=== PATIENT | female | born 1975 | race Caucasian/White ===

== ENCOUNTER → 2016-07-07 17:01 | Outpatient (CLI) | payer OTHER ==
[2016-08-21 06:33] VITALS: BMI 30.1
== END | disposition home or self-care (01) ==
LOC: D.MAMMO 11:45
DX: Z12.31 Encounter for screening mammogram for malignant neoplasm of breast (principal)

== ENCOUNTER 2016-08-21 05:43 | Day surgery (SDC) | payer OTHER ==
[2016-08-21 06:38] LABS: BASOPHILS 0.2 % (0-2); HEMATOCRIT 42.9 % (36.0-48.0); HEMOGLOBIN 14.3 g/dL (12-16); IMMATURE GRANULOCYTES 0.4 % (0-5); LYMPHOCYTES 24.4 % (15-50); MCH 33.3 pg (26.0-34.0); MCHC 33.3 g/dL (31.0-37.0); MCV 99.8 fL (80.0-100.0); MONOCYTES 14.8 % (2-11); NEUTROPHILS 58.2 % (40-80); PLATELET COUNT 231 10x3/uL (130-400); RDW 12.9 % (11.5-14.5)
[2016-08-21 06:42] LABS: HCG URINE NEGATIVE (NEGATIVE)
== END 2016-08-21 08:45 | disposition home or self-care (01) ==
LOC: D.OPS 05:43
PROVIDERS: Obstetrics & Gynecology
DX: Z30.433 Encounter for removal and reinsertion of intrauterine contraceptive device (principal); Z01.812 Encounter for preprocedural laboratory examination; N88.2 Stricture and stenosis of cervix uteri

== ENCOUNTER 2018-06-28 19:00 | Outpatient (CLI) | payer OTHER ==
[2016-08-21 06:33] VITALS: BMI 30.1
== END 2018-06-28 23:59 | disposition home or self-care (01) ==
LOC: D.MAMMO 19:00
PROVIDERS: ATTEND Family Medicine
DX: Z12.31 Encounter for screening mammogram for malignant neoplasm of breast (principal)